=== PATIENT | male | born 1945 | race Caucasian/White ===

== ENCOUNTER 2016-09-23 13:23 | Day surgery (SDC) | payer MEDICARE ==
[2016-09-19 15:53] VITALS: BMI 22.8
--- NOTE | 2016-09-23 08:38 | P.GSHP ---
History of Present Illness H&P Date: 09/23/16 Chief Complaint: Reading or hernia Patient has been followed in the outpatient setting. He has complaints of a right groin hernia. He has a history of prior left inguinal hernia in 2000. That was performed through a traditional open approach. He feels an ache and a small bulge in the right groin. No nausea or vomiting. No change in bowel habits. Recent colonoscopy was performed. Past Medical History Past Medical History: Coronary Artery Disease (CAD), Hypertension Additional Past Medical History / Comment(s): HX OF DIARRHEA. History of Any Multi-Drug Resistant Organisms: None Reported Past Surgical History: Coronary Bypass/CABG, Hernia Repair Additional Past Surgical History / Comment(s): LEFT INGUINAL HERNIA, SKIN LESION ON FACE REMOVED. Colonoscopy. Past Anesthesia/Blood Transfusion Reactions: No Reported Reaction Past Psychological History: No Psychological Hx Reported Smoking Status: Never smoker Past Alcohol Use History: Daily Additional Past Alcohol Use History / Comment(s): 4 OZ OF WHISKEY DAILY. Past Drug Use History: None Reported - Past Family History Mother Family Medical History: No Reported History Medications and Allergies Home Medications Medication Instructions Recorded Confirmed Type Aspirin EC [Ecotrin] 325 mg PO DAILY 08/23/16 09/19/16 History Atenolol [Tenormin] 25 mg PO BID 08/23/16 09/19/16 History Atorvastatin [Lipitor] 80 mg PO HS 08/23/16 09/19/16 History L.acidoph,Paracasei, B.lactis 1 each PO Q2D 08/23/16 09/19/16 History [Probiotic] Lisinopril [Zestril] 5 mg PO DAILY 08/23/16 09/19/16 History Niacin 1,000 mg PO DAILY 08/23/16 09/19/16 History Niacinamide [Niacin] 500 mg PO DAILY 08/23/16 09/19/16 History Nitroglycerin Sl Tabs [Nitrostat] 0.4 mg SUBLINGUAL Q5M PRN 08/23/16 09/19/16 History Turmeric Root Extract [Turmeric] 500 mg PO DAILY 08/23/16 09/19/16 History Vit A,C & E/Lutein/Minerals 1 each PO DAILY 08/23/16 09/19/16 History [Ocuvite with Lutein Tablet] Allergies Allergy/AdvReac Type Severity Reaction Status Date / Time Penicillins Allergy Unknown Rash/Hives, Verified 09/19/16 16:09 Swollen lip Surgical - Exam Physical exam: General: Well-developed, well-nourished HEENT: Normocephalic, sclerae nonicteric Abdomen: [id number] right internal hernia, no palpable left and or hernia noted, prior scar noted, testes normal Extremities: No edema Neuro: Alert and oriented Assessment and Plan (1) Right inguinal hernia Narrative/Plan: Will proceed with operative repair at this time. The plan to perform this laparoscopically with robotic assistance was discussed. The risks of bleeding, infection, recurrence, conversion, numbness, chronic pain, bladder injury, and anesthesia-related complications were discussed. Additionally the need for a Díaz during this surgical procedure was discussed with the patient as well. He understands and wishes to proceed. Status: Acute
[~2016-09-23 13:23] MED LIST: CLINDAMYCIN 900 MG in DEXTROSE 5% IN WATER 50 ML IVPB ONE; DEXAMETHASONE SOD PHOSPHATE 10 MG/ML 1 ML VIAL IV ONE; GENTAMICIN 360 MG in SODIUM CHLORIDE 0.9% 100 ML IVPB ONE; HEPARIN SODIUM,PORCINE 5,000 UNIT/ML 1 ML VIAL SQ ONE; LACTATED RINGERS 1,000 ML IV ONE; ONDANSETRON 4 MG/2 ML VIAL IVP ONE
[2016-09-23] MEDS: LIDOCAINE 1% 20 ML VIAL (10MG/ML) FOR IV START INTRADERMA PRN ×2 (13:50→13:55)
[2016-09-23] MEDS ORDERED: SUCCINYLCHOLINE CHLORIDE 100 MG/5 ML SYR IV ONE (15:09)
[2016-09-23] MEDS ORDERED: ePHEDrine 50 MG/ML 1 ML AMP ONE (15:09)
[2016-09-23] MEDS ORDERED: GLYCOPYRROLATE 0.2 MG/ML 2 ML VIAL ONE (15:09)
[2016-09-23] MEDS ORDERED: LIDOCAINE 1% INJ 10MG/ML (20 ML MDV) ONE (15:09)
[2016-09-23] MEDS ORDERED: PROPOFOL 10 MG/ML 20 ML VIAL IV ONE (15:09)
[2016-09-23] MEDS ORDERED: MIDAZOLAM 2 MG/2 ML VIAL ONE (15:09)
[2016-09-23] MEDS ORDERED: ROCURONIUM BROMIDE 10 MG/ML 10 ML VIAL IV ONE (15:09)
[2016-09-23] MEDS ORDERED: NEOSTIGMINE 1 MG/ML 10 ML VIAL ONE (15:09)
[2016-09-23] MEDS ORDERED: fentaNYL (PF) 50 MCG/ML 2 ML AMP ONE (15:09)
[2016-09-23] MEDS ORDERED: BUPIVACAIN-EPI 0.25%-1:200,000 30 ML VIAL SQ ONE (15:36)
[2016-09-23] MEDS ORDERED: NALOXONE 0.4 MG/ML 1 ML VIAL IV PRN (17:38)
[2016-09-23] MEDS ORDERED: HYDROcodone/APAP 5-325MG 1 EACH TAB PO PRN (17:38)
[2016-09-23] MEDS: HYDROmorphone 1 MG/ML 1 ML SYRINGE IVP PRN ×4 (17:40→18:04)
[2016-09-23 17:47] VITALS: TEMP 96.8
--- NOTE | 2016-09-23 17:49 | P.OP ---
Date of Procedure: 09/23/16 Procedure(s) Performed: PREOPERATIVE DIAGNOSIS: Right inguinal hernia POSTOPERATIVE DIAGNOSIS: Right direct inguinal hernia PROCEDURE: Laparoscopic repair right inguinal hernia with da Celestina robot assistance SURGEON: Timothy EBL: Minimal ANESTHESIA: General COMPLICATIONS: None OPERATIVE PROCEDURE: Patient was placed on the operating table in the supine position. A Rivera catheter was placed. He was then placed in lithotomy. The abdomen was prepped and draped in usual sterile fashion. A small vertical supraumbilical incision was made. The fascia was retracted anteriorly with Irasema forceps. The Veress needle was inserted. The saline drop test was normal. Insufflation took place to 15 mmHg. A 5 mm trocar was then inserted. 2 additional 8 mm trochars were placed in the right upper quadrant and left upper quadrant under visualization. The initial 5 was switched to a 12 mm trocar at that time under direct visualization. The robotic arms were then brought in and docked into place. The fenestrated bipolar was used in the left arm and the laparoscopic jalyn were utilized in the right arm. A 30 12 mm scope was used in the up position. The peritoneal cavity was inspected. No left internal hernia was seen. An incision was then made on the peritoneum approximately 3-4 cm cephalad to the defect extending from the umbilical ligament laterally. Following that careful dissection of the preperitoneal space took place. This took place using electrocautery, sharp dissection and primarily blunt dissection. The patient's hernia was a direct hernia. The hernia sac was dissected away from the hole within Hesselbach's triangle. The pubic tubercle was identified. Raffy's ligament was dissected. Following that the dissection took place laterally. There was no evidence of an indirect hernia. The peritoneum was dissected all the way off of the spermatic cord structures. A small lipoma was identified and reduced. Once we had adequate space the 15 x 10 progrip mesh was advanced into the preperitoneal space and flattened out appropriately to cover all potential hernia sites. No sutures were used. The peritoneal defect was then closed using a 2-0 Vicryl stranstrattafix suture. The pneumoperitoneum was then evacuated. The fascia at the 12 mm site was closed using a [id number] 0 Vicryl stitch. At the completion of the procedure it was noted the patient had some subcutaneous emphysema. This was felt to be likely related to our 8 mm trocar where the CO2 gas was infusing tip pulled back slightly. I was able to decompress the subcutaneous emphysema out through the incision sites. The skin of all 3 sites was closed using a 4-0 Monocryl stitch. Steri-Strips and sterile dressings were applied. DISPOSITION: Stable to recovery room
[2016-09-23 18:46] VITALS: RESP 18
[2016-09-23] MEDS ORDERED: HYDROcodone/APAP 5-325MG 1 EACH TAB PO ONE (19:00)
[2016-09-23 19:14] VITALS: BP 134/83; PULSE 89
[2016-09-23] MEDS ORDERED: LACTATED RINGERS 1,000 ML IV ONE (19:45)
== END 2016-09-23 20:08 | disposition home or self-care (01) ==
LOC: OR 13:23
PROVIDERS: ATTEND Surgery
DX: K40.90 Unilateral inguinal hernia, without obstruction or gangrene, not specified as recurrent (principal); I25.10 Atherosclerotic heart disease of native coronary artery without angina pectoris; I10 Essential (primary) hypertension; E78.5 Hyperlipidemia, unspecified; Z95.1 Presence of aortocoronary bypass graft; Z79.82 Long term (current) use of aspirin; Z79.899 Other long term (current) drug therapy; Z88.0 Allergy status to penicillin
CPT/HCPCS: 49650; C1781; J2250; J1644; J1100; J2710; J2405; J2001; J3010; J1580; J1170; J0330; J2704

== ENCOUNTER 2022-01-14 12:02 | Inpatient (IN) | payer MEDICARE ==
[2022-01-14] MEDS ORDERED: SODIUM CHLORIDE 0.9% 1,000 ML IV STA (12:41)
--- NOTE | 2022-01-14 13:11 | ED ---
General Adult HPI - General Chief complaint: Dizziness Stated complaint: Syncopal episode Time Seen by Provider: 01/14/22 12:10 Source: patient, RN notes reviewed, old records reviewed Mode of arrival: EMS Limitations: no limitations - History of Present Illness Initial comments: This is a 76-year-old male presents emergency Department complaining of having multiple syncopal episodes. Patient states this started about 2 weeks ago when he was in [place] he was hospitalist for 4 days and had a loop recorder placed. Patient states he got a call today after he had an episode of syncope on Friday and Friday and the aircraft mechanic armament want to make an appointment to come see him in the next couple of days. Patient states he started feeling funny and lig htheaded and he decided come to the emergency department immediately. Patient denies any chest pain or palpitations. Patient denies shortness of breath or difficulty breathing. Patient states he normally passes out and only last about 15 seconds according to the . Patient states his atenolol was knocked down from twice a day to once a day and now down to 12.5 mg. patient denies any recent fever chills or cough. Patient denies any abdominal pain patient as nausea vomiting. Patient is asymptomatic currently - Related Data Home Medications Medication Instructions Recorded Confirmed Aspirin EC [Ecotrin] 325 mg PO DAILY 08/23/16 09/19/16 Atorvastatin [Lipitor] 80 mg PO HS 08/23/16 09/19/16 L.acidoph,Paracasei, B.lactis 1 each PO Q2D 08/23/16 09/19/16 [Probiotic] Niacin 1,000 mg PO DAILY 08/23/16 09/19/16 Niacinamide [Niacin] 500 mg PO DAILY 08/23/16 09/19/16 Nitroglycerin Sl Tabs [Nitrostat] 0.4 mg SUBLINGUAL Q5M PRN 08/23/16 09/19/16 Turmeric Root Extract [Turmeric] 500 mg PO DAILY 08/23/16 09/19/16 Vits A,C,E/Lutein/Minerals 1 each PO DAILY 08/23/16 09/19/16 [Ocuvite with Lutein Tablet] atenoloL [Tenormin] 25 mg PO BID 08/23/16 09/19/16 lisinopriL [Zestril] 5 mg PO DAILY 08/23/16 09/19/16 Previous Rx's Medication Instructions Recorded Hydrocodone/Acetaminophen [[place] 1 - 2 each PO Q4HR PRN #30 tab 09/23/16 5-325] Allergies Allergy/AdvReac Type Severity Reaction Status Date / Time Penicillins Allergy Unknown Rash/Hives, Verified 01/14/22 12:17 Swollen lip sulfamethoxazole Allergy Unknown Verified 01/14/22 12:17 [From Bactrim] trimethoprim [From Bactrim] Allergy Unknown Verified 01/14/22 12:17 Review of Systems ROS Statement: Those systems with pertinent positive or pertinent negative responses have been documented in the HPI. ROS Other: All systems not noted in ROS Statement are negative. Past Medical History Past Medical History: Coronary Artery Disease (CAD), Hypertension Additional Past Medical History / Comment(s): HX OF DIARRHEA. History of Any Multi-Drug Resistant Organisms: None Reported Past Surgical History: Coronary Bypass/CABG, Hernia Repair Additional Past Surgical History / Comment(s): LEFT INGUINAL HERNIA, SKIN LESION ON FACE REMOVED. Colonoscopy. loop recorder Past Anesthesia/Blood Transfusion Reactions: No Reported Reaction Past Psychological History: No Psychological Hx Reported Smoking Status: Never smoker Past Alcohol Use History: Daily Past Drug Use History: None Reported - Past Family History Mother Family Medical History: No Reported History General Exam - General Exam Comments Initial Comments: GENERAL: Patient is well-developed and well-nourished. Patient is nontoxic and well- hydrated and is in no acute distress. ENT: Neck is soft and supple. No significant lymphadenopathy is noted. Oropharynx is clear. Moist mucous membranes. Neck has full range of motion without eliciting any pain. EYES: The sclera were anicteric and conjunctiva were pink and moist. Extraocular movements were intact and pupils were equal round and reactive to light. Eyelids were unremarkable. PULMONARY: Unlabored respirations. Good breath sounds bilaterally. No audible rales rhonchi or wheezing was noted. CARDIOVASCULAR: There is a regular rate and rhythm without any murmurs gallops or rubs. ABDOMEN: Soft and nontender with normal bowel sounds. SKIN: Skin is clear with no lesions or rashes and otherwise unremarkable. NEUROLOGIC: Patient is alert and oriented x3. Cranial nerves II through XII are grossly int act. Motor and sensory are also intact. Normal speech, volume and content. Symmetrical smile. MUSCULOSKELETAL: Normal extremities with adequate strength and full range of motion. No lower extremity swelling or edema. No calf tenderness. LYMPHATICS: No significant lymphadenopathy is noted PSYCHIATRIC: Normal psychiatric evaluation. Limitations: no limitations Course Vital Signs 01/14/22 01/14/22 12:06 13:17 Temperature 98 F Pulse Rate 70 Pulse Rate [ 74 Sitting] Pulse Rate [ 75 Standing] Pulse Rate [ 67 Supine] Respiratory 16 16 Rate Blood Pressure 144/76 Blood Pressure 148/83 [Sitting] Blood Pressure 152/92 [Standing] Blood Pressure 146/76 [Supine] O2 Sat by Pulse 96 Oximetry Medical Decision Making - Medical Decision Making EKG shows sinus rhythm with a right bundle meme block at 70 bpm AK interval is 225 QRS is 153 QT interval is 472 QTC is 438. Patient's EKG shows no ST segment elevation or depression. Chest x-ray shows no acute abnormality. Spoke with cardiology. Dr. Camargo came to the emergency department and saw the patient and determined the patient needed a pacemaker. I spoke with Dr. Novoa agreed to admit the patient admitted the patient I wrote admitting orders. - Lab Data Result diagrams: 01/14/22 13:04 01/14/22 13:04 Lab Results 01/14/22 01/14/22 01/14/22 Range/Units 13:04 13:04 13:04 WBC 5.6 (3.8-10.6) k/uL RBC 4.78 (4.30-5.90) m/uL Hgb 14.8 (13.0-17.5) gm/dL Hct 44.5 (39.0-53.0) % MCV 93.0 (80.0-100.0) fL MCH 31.0 (25.0-35.0) pg MCHC 33.4 (31.0-37.0) g/dL RDW 13.1 (11.5-15.5) % Plt Count 204 (150-450) k/uL MPV 7.3 Neutrophils % 65 % Lymphocytes % 22 % Monocytes % 8 % Eosinophils % 0 % Basophils % 1 % Neutrophils # 3.6 (1.3-7.7) k/uL Lymphocytes # 1.3 (1.0-4.8) k/uL Monocytes # 0.4 (0-1.0) k/uL Eosinophils # 0.0 (0-0.7) k/uL Basophils # 0.0 (0-0.2) k/uL PT 10.7 (9.0-12.0) sec INR 1.0 (<1.2) APTT 23.2 (22.0-30.0) sec Sodium 141 (137-145) mmol/L Potassium 4.0 (3.5-5.1) mmol/L Chloride 108 H (98-107) mmol/L Carbon Dioxide 24 (22-30) mmol/L Anion Gap 9 mmol/L BUN 16 (9-20) mg/dL Creatinine 0.89 (0.66-1.25) mg/dL Est GFR (CKD-EPI)AfAm >90 (>60 ml/min/1.73 sqM) Est GFR (CKD-EPI)NonAf 83 (>60 ml/min/1.73 sqM) Glucose 80 (74-99) mg/dL Calcium 9.2 (8.4-10.2) mg/dL Magnesium 2.1 (1.6-2.3) mg/dL Total Bilirubin 0.9 (0.2-1.3) mg/dL AST 30 (17-59) U/L ALT 31 (4-49) U/L Alkaline Phosphatase 80 (38-126) U/L Troponin I (0.000-0.034) ng/mL Total Protein 6.7 (6.3-8.2) g/dL Albumin 4.1 (3.5-5.0) g/dL 01/14/22 Range/Units 13:04 WBC (3.8-10.6) k/uL RBC (4.30-5.90) m/uL Hgb (13.0-17.5) gm/dL Hct (39.0-53.0) % MCV (80.0-100.0) fL MCH (25.0-35.0) pg MCHC (31.0-37.0) g/dL RDW (11.5-15.5) % Plt Count (150-450) k/uL MPV Neutrophils % % Lymphocytes % % Monocytes % % Eosinophils % % Basophils % % Neutrophils # (1.3-7.7) k/uL Lymphocytes # (1.0-4.8) k/uL Monocytes # (0-1.0) k/uL Eosinophils # (0-0.7) k/uL Basophils # (0-0.2) k/uL PT (9.0-12.0) sec INR (<1.2) APTT (22.0-30.0) sec Sodium (137-145) mmol/L Potassium (3.5-5.1) mmol/L Chloride (98-107) mmol/L Carbon Dioxide (22-30) mmol/L Anion Gap mmol/L BUN (9-20) mg/dL Creatinine (0.66-1.25) mg/dL Est GFR (CKD-EPI)AfAm (>60 ml/min/1.73 sqM) Est GFR (CKD-EPI)NonAf (>60 ml/min/1.73 sqM) Glucose (74-99) mg/dL Calcium (8.4-10.2) mg/dL Magnesium (1.6-2.3) mg/dL Total Bilirubin (0.2-1.3) mg/dL AST (17-59) U/L ALT (4-49) U/L Alkaline Phosphatase (38-126) U/L Troponin I <0.012 (0.000-0.034) ng/mL Total Protein (6.3-8.2) g/dL Albumin (3.5-5.0) g/dL Disposition Clinical Impression: Syncope and collapse, Bradycardia Disposition: ADMITTED IP TO THIS [facility] Referrals: Daniel Larose MD [Primary Care Provider] - 1-2 days
--- NOTE | 2022-01-14 13:15 | XR ---
EXAMINATION TYPE: XR chest 2V DATE OF EXAM: 01/14/2022 COMPARISON: NONE TECHNIQUE: PA and lateral views submitted. HISTORY: Chest Pain FINDINGS: The lungs are clear and there is no pneumothorax, pleural effusion, or focal pneumonia. Postoperati ve change with no overt failure. Arthropathy of the shoulders. Hypertrophic and degenerative change o f the spine. Suggestion of an epicardial lead. IMPRESSION: 1. No acute process.
[2022-01-14 13:26] LABS: ALT 31 U/L (4-49); AST 30 U/L (17-59); African American GFR (CKD) >90 (>60 ml/min/1.73 sqM); Albumin 4.1 g/dL (3.5-5.0); Alkaline Phosphatase 80 U/L (38-126); Anion Gap 9 mmol/L; Blood Urea Nitrogen 16 mg/dL (9-20); Calcium 9.2 mg/dL (8.4-10.2); Carbon Dioxide 24 mmol/L (22-30); Chloride 108 mmol/L (98-107); Glucose 80 mg/dL (74-99); Magnesium 2.1 mg/dL (1.6-2.3); Non-African American GFR(CKD) 83 (>60 ml/min/1.73 sqM); Sodium 141 mmol/L (137-145); Total Bilirubin 0.9 mg/dL (0.2-1.3); Total Protein 6.7 g/dL (6.3-8.2)
[2022-01-14 13:34] LABS: Prothrombin Time 10.7 sec (9.0-12.0)
[2022-01-14 13:35] LABS: Partial Thromboplastin Time 23.2 sec (22.0-30.0)
[2022-01-14 13:43] LABS: Basophils % (A) 1 %; Eosinophils % (A) 0 %; HCT 44.5 % (39.0-53.0); HGB 14.8 gm/dL (13.0-17.5); Lymphocytes # (A) 1.3 k/uL (1.0-4.8); Lymphocytes % (A) 22 %; MCHC 33.4 g/dL (31.0-37.0); Mean Platelet Volume 7.3; Monocytes # (A) 0.4 k/uL (0-1.0); Monocytes % (A) 8 %; Neutrophils # (A) 3.6 k/uL (1.3-7.7); Neutrophils % (A) 65 %; Platelet Count 204 k/uL (150-450); RBC 4.78 m/uL (4.30-5.90); RDW 13.1 % (11.5-15.5); WBC 5.6 k/uL (3.8-10.6)
[2022-01-14] MEDS ORDERED: SODIUM CHLORIDE 0.9% 1,000 ML IV ONE (14:32)
[2022-01-14 14:35] LABS: Glucose,Whole Blood 72 mg/dL (75-99)
--- NOTE | 2022-01-14 14:37 | P.CRDCN ---
History of Present Illness Consult date: 01/14/22 History of present illness: History of Present Illness: The patient is a 76 old male with a known history of coronary disease, hypertension, hyperlipidemia who presented with a syncopal episode. He had a syncopal episode of unknown etiology while in [place], received an implantable loop recorder and since that time had no syncope and recently underwent an MPI that showed no evidence of stress-induced ischemia and his systolic function. He underwent CABG in 2006. He is quite active physically without any symptoms or limitations. Friday night he had a syncopal episode of 15 seconds or so and he had another episode Friday. His symptoms were not associated with tonic-clonic activity, loss of bladder control or palpitations. He had no chest discomfort or significant dyspnea. He is loop recorder showed sinus pauses of 15 and 18 seconds. Patient activity has been stable until recently. He has no prior history of CHF or recurrent angina pectoris. He has a history of hypertension and hyperlipidemia but he is a nondiabetic nonsmoker. He has no history of carotid disease, he had a carotid duplex scan done in November of this year that showed mild obstructive disease. His medication at home include aspirin once a day, atenolol 12-1/2 mg daily, atorvastatin 80 mg daily, lisinopril 5 mg daily, niacin 500 mg twice a day. Review of Systems: Respiratory: No history of asthma, bronchitis or recent cough. GI: She had nausea and vomiting today. No history of peptic ulcer disease. No recent GI bleed. : No hematuria or dysuria. Nervous System: No stroke or seizure. Physical Examination: 76-year-old male alert and oriented no apparent distress, blood pressure 146/70 with a heart rate in the 70s Head: Normocephalic. Eyes: Sclerae nonicteric. Neck: Good carotid upstroke, no bruit, no jugular venous distention. Lungs: Clear to auscultation. Heart: Regular rate and rhythm, S1-S2, no S3, no rub. Systolic ejection murmur. Abdomen: Soft nontender, positive bowel sounds no organomegaly. Extremities: No edema, intact distal pulses. Labs: Troponin less than 0.012, potassium 4.0, BUN 16, creatinine 0.89, hemoglobin of 14. His EKG shows sinus mechanism with incomplete right bundle branch block. His chest x-ray shows no acute changes. Impression: 1. Syncope with sinus arrest 2. Status post CABG, stable 3. History of hypertension 4. History of hyperlipidemia Plan: 1. Proceed with permanent pacemaker implantation, I discussed with him the rationale and the plan 2. Hold beta jared for now 3. Continue other medications 4. No need to repeat the echo ordered a carotid duplex scan 5. Depending on his progress further recommendations will be made. He will be scheduled to undergo the procedure tomorrow by Dr. Chambers. Thank you for this consult we will follow with you. Past Medical History Past Medical History: Coronary Artery Disease (CAD), Hypertension Additional Past Medical History / Comment(s): HX OF DIARRHEA. History of Any Multi-Drug Resistant Organisms: None Reported Past Surgical History: Coronary Bypass/CABG, Hernia Repair Additional Past Surgical History / Comment(s): LEFT INGUINAL HERNIA, SKIN LESION ON FACE REMOVED. Colonoscopy. loop recorder Past Anesthesia/Blood Transfusion Reactions: No Reported Reaction Past Psychological History: No Psychological Hx Reported Smoking Status: Never smoker Past Alcohol Use History: Daily Past Drug Use History: None Reported - Past Family History Mother Family Medical History: No Reported History Medications and Allergies Home Medications Medication Instructions Recorded Confirmed Type Aspirin EC [Ecotrin] 325 mg PO DAILY 08/23/16 09/19/16 History Atorvastatin [Lipitor] 80 mg PO HS 08/23/16 09/19/16 History L.acidoph,Paracasei, B.lactis 1 each PO Q2D 08/23/16 09/19/16 History [Probiotic] Niacin 1,000 mg PO DAILY 08/23/16 09/19/16 History Niacinamide [Niacin] 500 mg PO DAILY 08/23/16 09/19/16 History Nitroglycerin Sl Tabs [Nitrostat] 0.4 mg SUBLINGUAL Q5M PRN 08/23/16 09/19/16 History Turmeric Root Extract [Turmeric] 500 mg PO DAILY 08/23/16 09/19/16 History Vits A,C,E/Lutein/Minerals 1 each PO DAILY 08/23/16 09/19/16 History [Ocuvite with Lutein Tablet] atenoloL [Tenormin] 25 mg PO BID 08/23/16 09/19/16 History lisinopriL [Zestril] 5 mg PO DAILY 08/23/16 09/19/16 History Hydrocodone/Acetaminophen [[place] 1 - 2 each PO Q4HR PRN #30 tab 09/23/16 Rx 5-325] Allergies Allergy/AdvReac Type Severity Reaction Status Date / Time Penicillins Allergy Unknown Rash/Hives, Verified 01/14/22 12:17 Swollen lip sulfamethoxazole Allergy Unknown Verified 01/14/22 12:17 [From Bactrim] trimethoprim [From Bactrim] Allergy Unknown Verified 01/14/22 12:17 Physical Exam Vitals: Vital Signs Temp Pulse Pulse Pulse Pulse Resp BP 01/14/22 13:17 74 75 67 16 01/14/22 12:06 98 F 70 16 144/76 BP BP BP Pulse Ox 01/14/22 13:17 148/83 152/92 146/76 01/14/22 12:06 96 Intake and Output 01/13/22 01/14/22 01/14/22 22:59 06:59 14:59 Other: Weight 69.853 kg Results 01/14/22 13:04 01/14/22 13:04 Cardiac Enzymes 01/14/22 01/14/22 Range/Units 13:04 13:04 AST 30 (17-59) U/L Troponin I <0.012 (0.000-0.034) ng/mL Coagulation 01/14/22 Range/Units 13:04 PT 10.7 (9.0-12.0) sec APTT 23.2 (22.0-30.0) sec CBC 01/14/22 Range/Units 13:04 WBC 5.6 (3.8-10.6) k/uL RBC 4.78 (4.30-5.90) m/uL Hgb 14.8 (13.0-17.5) gm/dL Hct 44.5 (39.0-53.0) % Plt Count 204 (150-450) k/uL Comprehensive Metabolic Panel 01/14/22 Range/Units 13:04 Sodium 141 (137-145) mmol/L Potassium 4.0 (3.5-5.1) mmol/L Chloride 108 H (98-107) mmol/L Carbon Dioxide 24 (22-30) mmol/L BUN 16 (9-20) mg/dL Creatinine 0.89 (0.66-1.25) mg/dL Glucose 80 (74-99) mg/dL Calcium 9.2 (8.4-10.2) mg/dL AST 30 (17-59) U/L ALT 31 (4-49) U/L Alkaline Phosphatase 80 (38-126) U/L Total Protein 6.7 (6.3-8.2) g/dL Albumin 4.1 (3.5-5.0) g/dL Current Medications Generic Name Dose Route Start Last Admin Trade Name Freq PRN Reason Stop Dose Admin Sodium Chloride 1,000 mls @ 50 mls/hr 01/14/22 14:30 Saline 0.9% IV .Q20H EVAN Sodium Chloride 1,000 mls @ 50 mls/hr 01/14/22 14:30 Saline 0.9% IV .Q20H EVAN Clindamycin Phosphate 900 mg/ 56 mls @ 50 mls/hr 01/15/22 07:00 Dextrose/Water IVPB 01/15/22 23:00 ONCE PRN Pre-Op Clindamycin Phosphate 600 mg/ 254 mls @ 250 mls/hr 01/15/22 07:00 Sodium Chloride IRRIGATION 01/15/22 23:00 ONCE PRN Pre-Op Intake and Output 01/13/22 01/14/22 01/14/22 22:59 06:59 14:59 Other: Weight 69.853 kg Patient Weight 01/15/22 06:59 Weight 69.853 kg 01/14/22 13:04 01/14/22 13:04
[2022-01-14] MEDS: SODIUM CHLORIDE 0.9% 1,000 ML IV SCH ×2 (15:05)
--- NOTE | 2022-01-14 21:34 | P.HPIM ---
History of Present Illness H&P Date: 01/14/22 Chief Complaint: Syncope This is a pleasant 76-year-old patient who follows with Dr. Larose. Chronic stable medical conditions include coronary artery disease with bypass about 15 years ago, hypertension, hyperlipidemia. Follows with rod bending machine operator Dr. Camargo. Patient was recently in [place]. Started having recurrent syncopal episodes. Would pass out without doing. Lasting for short period of time. Loop recorder was placed in [place]. He had further episodes decided to send day. He was called to come in to the hospital as he was found to have a sinus pauses lasting anywhere from 15-18 seconds. Patient scheduled follow-up pacemaker tomorrow. Currently reclining in bed comfortable. Patient did not have any symptoms coming on before passing out. Review of systems: GEN.: Tired EYES: None HEENT: None NECK: None RESPIRATORY: None CARDIOVASCULAR: [As above GASTROINTESTINAL: None GENITOURINARY: None MUSCULOSKELETAL: None LYMPHATICS: None HEMATOLOGICAL: None PSYCHIATRY: None NEUROLOGICAL: None Past medical history to include: Coronary artery disease with bypass, hypertension, hyperlipidemia Social history: . Does not smoke. Sitting pressure for the Tylenol field. Drinks about 4 ounces of whiskey in the evening. Family history: Reviewed, noncontributory to presentation Physical examination: VITAL SIGNS: 98, 70, 16, 144/76, 96% room air GENERAL: BMI 22.1, reclining but awake, comfortable. EYES: Pupils equal. Conjunctiva normal. HEENT: External appearance of nose and ears normal, oral cavity grossly normal. NECK: JVD not raised; masses not palpable. HEART: First and second heart sounds are normal; no edema. LUNGS: Respiratory rate normal; clear to auscultation. ABDOMEN: Soft, nontender, liver spleen not palpable, no masses palpable. PSYCH: Alert and oriented x3; mood and affect normal. MUSCULOSKELETAL:No Clubbing/cyanosis;muscles-grossly intact NEUROLOGICAL: Cranial nerves grossly intact; no facial asymmetry, power and sensation grossly intact. LYMPHATICS: No lymph nodes palpable in the axilla and neck INVESTIGATIONS, reviewed in the clinical context: White count 5.6 hemoglobin 14.8 platelets 204 sodium 141 potassium 4 being 16 creatinine 0.89 Troponin I less than 0.012 EKG tracing personally reviewed by me-sinus rhythm. First-degree AV block. Intraventricular conduction delay. Assessment and plan: -Sinus pauses lasting from 16-18 seconds on the Loop recorder causing patient to have recurrent syncope. Follow-up appointment pacemaker tomorrow. Tenormin held -CAD with a prior history of bypass about 15 years ago. Aspirin. Hyperlipidemia Lipitor 80 mg daily at bedtime. Niacin 500 mg twice a day. Niacin thousand milligram a day -Essential hypertension Zestril 5 mg a day. Hold beta jared Resume home medications. Hold beta jared. Telemetry. Nothing by mouth after midnight. 4 pacemaker tomorrow. Care was discussed with the patient. Questions answered. Given the complexity and severity of patient's condition expect the patient to be in the hospital at least for 2 overnights Past Medical History Past Medical History: Coronary Artery Disease (CAD), Hypertension Additional Past Medical History / Comment(s): HX OF DIARRHEA. History of Any Multi-Drug Resistant Organisms: None Reported Past Surgical History: Coronary Bypass/CABG, Hernia Repair Additional Past Surgical History / Comment(s): LEFT INGUINAL HERNIA, SKIN LESION ON FACE REMOVED. Colonoscopy. loop recorder Past Anesthesia/Blood Transfusion Reactions: No Reported Reaction Past Psychological History: No Psychological Hx Reported Smoking Status: Never smoker Past Alcohol Use History: Daily Past Drug Use History: None Reported - Past Family History Mother Family Medical History: No Reported History Medications and Allergies Home Medications Medication Instructions Recorded Confirmed Type Atorvastatin [Lipitor] 80 mg PO HS 08/23/16 01/14/22 History Niacinamide [Niacin] 500 mg PO BID 08/23/16 01/14/22 History Turmeric Root Extract [Turmeric] 500 mg PO DAILY 08/23/16 01/14/22 History atenoloL [Tenormin] 12.5 mg PO DAILY 08/23/16 01/14/22 History lisinopriL [Zestril] 5 mg PO DAILY 08/23/16 01/14/22 History Aspirin EC [Ecotrin Low Dose] 81 mg PO DAILY 01/14/22 01/14/22 History Cholecalciferol (Vitamin D3) 125 mcg PO DAILY 01/14/22 01/14/22 History [Vitamin D3 (125 MCG = 5,000 IU)] Multivitamins, Thera [Multivitamin 1 tab PO DAILY 01/14/22 01/14/22 History (formulary)] Niacin 1,000 mg PO DAILY 01/14/22 01/14/22 History Allergies Allergy/AdvReac Type Severity Reaction Status Date / Time Penicillins Allergy Unknown Rash/Hives Verified 01/14/22 15:02 on entire body, Swollen lip sulfamethoxazole AdvReac "Thought Verified 01/14/22 15:02 [From Bactrim] he was having a seizure" trimethoprim [From Bactrim] AdvReac "Thought Verified 01/14/22 15:02 he was having a seizure" Physical Exam Vitals: Vital Signs Temp Pulse Pulse Pulse Pulse Resp BP 01/14/22 20:00 97.8 F 79 18 01/14/22 17:45 98 F 70 16 138/74 01/14/22 15:32 79 16 136/74 01/14/22 13:17 74 75 67 16 01/14/22 12:06 98 F 70 16 144/76 BP BP BP Pulse Ox 01/14/22 20:00 144/81 97 01/14/22 17:45 95 01/14/22 15:32 96 01/14/22 13:17 148/83 152/92 146/76 01/14/22 12:06 96 Intake and Output 01/14/22 01/14/22 01/14/22 06:59 14:59 22:59 Other: Weight 69.853 kg Results CBC & Chem 7: 01/14/22 13:04 01/14/22 13:04 Labs: Abnormal Lab Results - Last 24 Hours (Table) 01/14/22 01/14/22 Range/Units 13:04 14:34 Chloride 108 H (98-107) mmol/L POC Glucose (mg/dL) 72 L (75-99) mg/dL
[2022-01-14] MEDS: ATORVASTATIN 80 MG TAB PO SCH (22:10)
[2022-01-15] MEDS: ASPIRIN 81 MG PO SCH (06:03)
[2022-01-15] MEDS: lisinopriL 5 MG TAB PO SCH (06:03)
[2022-01-15] MEDS: MULTIVITAMINS, THERA 1 EACH TAB PO SCH (06:03)
[2022-01-15] MEDS: SODIUM CHLORIDE 0.9% 1,000 ML IV SCH ×2 (06:03→06:04)
[2022-01-15] MEDS: CHOLECALCIFEROL 125 MCG (5000 IU) TABLET PO SCH (06:03)
[2022-01-15] MEDS ORDERED: CLINDAMYCIN 900 MG in DEXTROSE 5% IN WATER 50 ML IVPB PRN ×2 (07:00)
[2022-01-15] MEDS ORDERED: CLINDAMYCIN 600 MG in SODIUM CHLORIDE 0.9% 250 ML IRRIGATION PRN (07:00)
[2022-01-15 07:20] LABS: Glucose,Whole Blood 102 mg/dL (75-99)
[2022-01-15 08:11] LABS: Basophils % (A) 1 %; Eosinophils # (A) 0.1 k/uL (0-0.7); Eosinophils % (A) 1 %; HCT 42.5 % (39.0-53.0); HGB 14.4 gm/dL (13.0-17.5); Lymphocytes # (A) 1.3 k/uL (1.0-4.8); Lymphocytes % (A) 25 %; MCH 32.1 pg (25.0-35.0); MCV 94.5 fL (80.0-100.0); Mean Platelet Volume 7.3; Monocytes # (A) 0.4 k/uL (0-1.0); Monocytes % (A) 8 %; Neutrophils # (A) 3.3 k/uL (1.3-7.7); Neutrophils % (A) 63 %; Platelet Count 192 k/uL (150-450); RBC 4.49 m/uL (4.30-5.90); RDW 13.1 % (11.5-15.5); WBC 5.3 k/uL (3.8-10.6)
[2022-01-15 08:14] LABS: African American GFR (CKD) >90 (>60 ml/min/1.73 sqM); Anion Gap 6 mmol/L; Blood Urea Nitrogen 12 mg/dL (9-20); Calcium 8.6 mg/dL (8.4-10.2); Carbon Dioxide 26 mmol/L (22-30); Chloride 109 mmol/L (98-107); Glucose 97 mg/dL (74-99); Non-African American GFR(CKD) 89 (>60 ml/min/1.73 sqM); Sodium 141 mmol/L (137-145)
--- NOTE | 2022-01-15 08:31 | P.PN ---
Subjective Progress Note Date: 01/15/22 PROGRESS NOTE The patient is a 76-year-old male with a known history of CAD, post CABG who had recent syncopal episodes, had an implantable loop recorder and had 2 episodes of syncope on the weekend with long sinus arrest. He is doing well this morning, denies any chest discomfort or dyspnea. He is scheduled to undergo permanent pacemaker implantation today. He is in sinus mechanism with no significant pauses on the monitor. He has a prior preserved systolic function and no evidence of ischemia on the recent stress test. He continues to be on aspirin, Lipitor 80 mg daily, Zestril 5 mg daily PHYSICAL EXAMINATION: Blood pressure 146/78 heart rate 70 LUNGS: Clear to auscultation HEART: Regular rate and rhythm, S1, S2. No S3. systolic ejection murmur at the base ABDOMEN: Soft, nontender, no organomegaly EXTREMETIES: No edema LAB: Potassium 4.0, BUN 12, creatinine 0.75, hemoglobin 14.4 IMPRESSION: 1. Syncope with sinus arrest 2. Status post CABG 3. History of hypertension 4. History of hyperlipidemia PLAN: 1. Proceed with permanent pacemaker implantation today 2. Reinitiate beta jared post procedure 3. If stable probable discharge home tomorrow. Objective - Vital Signs Vital signs: Vital Signs Temp 98.1 F 01/15/22 04:57 Pulse 74 01/15/22 04:57 Resp 16 01/15/22 04:57 BP 146/78 01/15/22 04:57 Pulse Ox 97 01/15/22 04:57 Intake & Output 01/14/22 01/15/22 01/15/22 18:59 06:59 18:59 Weight 69.853 kg 71 kg Other: # Voids 1 - Labs CBC & Chem 7: 01/15/22 07:25 01/15/22 07:25 Labs: Abnormal Lab Results - Last 24 Hours (Table) 01/14/22 01/14/22 01/15/22 Range/Units 13:04 14:34 07:19 Chloride 108 H (98-107) mmol/L POC Glucose (mg/dL) 72 L 102 H (75-99) mg/dL 01/15/22 Range/Units 07:25 Chloride 109 H (98-107) mmol/L POC Glucose (mg/dL) (75-99) mg/dL
[2022-01-15] MEDS: ACETAMINOPHEN TAB 500 MG TAB PO PRN ×2 (14:55→22:56)
[2022-01-15] MEDS ORDERED: IV FLUID CONTINUATION 1,000 ML IV ONE (16:10)
[2022-01-15] MEDS ORDERED: IOPAMIDOL-370 50ML BTL INJ ONE (16:24)
--- NOTE | 2022-01-15 16:25 | P.PN ---
Progress Note - Text Progress Note Date: 01/15/22 Chief Complaint: Syncope This is a pleasant 76-year-old patient who follows with Dr. Larose. Chronic stable medical conditions include coronary artery disease with bypass about 15 years ago, hypertension, hyperlipidemia. Follows with professional driver Dr. Camargo. Patient was recently in [place]. Started having recurrent syncopal episodes. Would pass out without doing. Lasting for short period of time. Loop recorder was placed in [place]. He had further episodes decided to send day. He was called to come in to the hospital as he was found to have a sinus pauses lasting anywhere from 15-18 seconds. Patient scheduled follow-up pacemaker tomorrow. Currently reclining in bed comfortable. Patient did not have any symptoms coming on before passing out. January 15: Patient's visiting. Pending pacemaker placement later today. Currently no symptoms. Telemetry. Nothing by mouth. Active Medications Acetaminophen (Acetaminophen Tab 500 Mg Tab) 500 mg PO Q6HR PRN PRN Reason: Fever and/ or Pain Last Admin: 01/15/22 14:55 Dose: 500 mg Documented by: Aspirin (Aspirin 81 Mg) 81 mg PO DAILY [facility] Last Admin: 01/15/22 06:03 Dose: 81 mg Documented by: Atorvastatin Calcium (Atorvastatin 80 Mg Tab) 80 mg PO HS [facility] Last Admin: 01/14/22 22:10 Dose: 80 mg Documented by: Cholecalciferol (Cholecalciferol 125 Mcg (5000 Iu) Tablet) 125 mcg PO DAILY [facility] Last Admin: 01/15/22 06:03 Dose: 125 mcg Documented by: Sodium Chloride (Saline 0.9%) 1,000 mls @ 50 mls/hr IV .Q20H [facility] Last Admin: 01/15/22 06:03 Dose: 50 mls/hr Documented by: Sodium Chloride (Saline 0.9%) 1,000 mls @ 50 mls/hr IV .Q20H [facility] Last Admin: 01/15/22 06:04 Dose: Not Given Documented by: Clindamycin Phosphate 900 mg/ (Dextrose/Water) 56 mls @ 50 mls/hr IVPB ONCE PRN PRN Reason: Pre-Op Stop: 01/15/22 23:00 Clindamycin Phosphate 600 mg/ (Sodium Chloride) 254 mls @ 250 mls/hr IRRIGATION ONCE PRN PRN Reason: Pre-Op Stop: 01/15/22 23:00 Lisinopril (Lisinopril 5 Mg Tab) 5 mg PO DAILY [facility] Last Admin: 01/15/22 06:03 Dose: 5 mg Documented by: Multivitamins (Multivitamins, Thera 1 Each Tab) 1 each PO DAILY [facility] Last Admin: 01/15/22 06:03 Dose: 1 each Documented by: Past medical history to include: Coronary artery disease with bypass, hypertension, hyperlipidemia Social history: . Does not smoke. Sitting pressure for the Tylenol field. Drinks about 4 ounces of whiskey in the evening. Family history: Reviewed, noncontributory to presentation Physical examination: VITAL SIGNS: 98.4, 67, 17, 142/84, 99% room air GENERAL: Reclining in bed, comfortable EYES: Pupils equal. Conjunctiva normal. HEENT: External appearance of nose and ears normal, oral cavity grossly normal. NECK: JVD not raised; masses not palpable. HEART: First and second heart sounds are normal; no edema. LUNGS: Respiratory rate normal; clear to auscultation. ABDOMEN: Soft, nontender, liver spleen not palpable, no masses palpable. PSYCH: Alert and oriented x3; mood and affect normal. MUSCULOSKELETAL:No Clubbing/cyanosis;muscles-grossly intact INVESTIGATIONS, reviewed in the clinical context: January 15: White count 5.3 hemoglobin 14.4 potassium 4 creatinine 0.75 White count 5.6 hemoglobin 14.8 platelets 204 sodium 141 potassium 4 being 16 creatinine 0.89 Troponin I less than 0.012 EKG tracing personally reviewed by me-sinus rhythm. First-degree AV block. Intraventricular conduction delay. Assessment and plan: -Sinus pauses lasting from 16-18 seconds on the Loop recorder causing patient to have recurrent syncope.: Uncontrolled Pending pacemaker placement today. Tenormin held -CAD with a prior history of bypass about 15 years ago. Aspirin. Hyperlipidemia Lipitor 80 mg daily at bedtime. Niacin 500 mg twice a day. Niacin thousand milligram a day -Essential hypertension Zestril 5 mg a day. Hold beta jared Continue current medications. Nothing by mouth. Pending pacemaker placement today.
[2022-01-15] MEDS ORDERED: LIDOCAINE 1% INJ 10MG/ML (30 ML VIAL-PF) SQ ONE (17:00)
[2022-01-15] MEDS ORDERED: fentaNYL (PF) 50 MCG/ML 2 ML AMP IV ONE ×2 (17:06)
[2022-01-15] MEDS ORDERED: fentaNYL (PF) 50 MCG/ML 2 ML AMP ONE (17:06)
[2022-01-15] MEDS ORDERED: MIDAZOLAM 2 MG/2 ML VIAL IV ONE (18:02)
--- NOTE | 2022-01-15 18:44 | P.EPPROC ---
- EP Procedure Note Electrophysiology Procedure Note: Diagnosis Syncope, documented long pauses on loop monitor Right bundle branch block Mildly prolonged CO interval Procedure Dual-chamber pacemaker implantation Details Patient was brought to the EP lab in a fasting state. Written informed consent was obtained prior to the procedure. Conscious sedation provided by anesthesia team IV antibiotics administered. Local anesthesia administered. A 4 cm incision made in the pectoral area. Subfascial pocket made. Venous access obtained Venous sheaths placed. Leads placed in the right heart Atrial lead position the right atrial appendage. [employer] medical affairs screwed in the right atrial appendage Pacing threshold 1 warted 0.4 ms, P waves 1.7 mV and pacing impedance 480 ohms RV lead position in the RV septum Pacing threshold 0.5 V at 0.4 ms R waves greater than 12 mV pacing impedance 650 ohms Dual chamber pacemaker device connected to the leads and placed in the subfascial pocket [facility] medical, ASSURITY MRI Patient tolerated the procedure well without acute complications DD 560-1:30 with a VIP mode turned on to minimize RV pacing
--- NOTE | 2022-01-15 18:45 | P.PRLE ---
RE: Alex Barajas Dear Dr. Thuan Johnson was admitted with episodes of syncope and documented long pauses on the loop monitor He underwent permanent pacing successfully He will continue to follow with you and Dr. Camargo as before Thank you for entrusting me with the care of the patient Warm regards Sincerely Phillip Chambers
--- NOTE | 2022-01-15 18:46 | P.PCN ---
Preoperative Diagnosis: Left upper extremity venogram 10 mL every dye injected in the left arm Patent left subclavian and axillary venous system Plan proceed with permanent pacing for syncope and documented long pauses on the loop monitor
--- NOTE | 2022-01-15 19:06 | P.PCN ---
Preoperative Diagnosis: Patient underwent EP procedure under conscious sedation/moderate sedation, monitoring of the level of consciousness and physiologic parameters including but not limited to vital signs and oxygenation. Patient tolerated the procedure well without any acute complications. Start time: 455 Stop time:1905
[2022-01-15] MEDS: ATORVASTATIN 80 MG TAB PO SCH (20:09)
[2022-01-15] MEDS ORDERED: CLINDAMYCIN 900 MG in DEXTROSE 5% IN WATER 50 ML IVPB ONE ×2 (21:00)
[2022-01-15] MEDS ORDERED: METOPROLOL TARTRATE 12.5 MG TAB PO STA (22:09)
[2022-01-16] MEDS ORDERED: CLINDAMYCIN 900 MG in DEXTROSE 5% IN WATER 50 ML IVPB ONE ×2 (03:00)
[2022-01-16] MEDS: SODIUM CHLORIDE 0.9% 1,000 ML IV SCH ×2 (06:12→06:22)
[2022-01-16] MEDS: ASPIRIN 81 MG PO SCH (08:53)
[2022-01-16] MEDS: CHOLECALCIFEROL 125 MCG (5000 IU) TABLET PO SCH (08:53)
[2022-01-16] MEDS: lisinopriL 5 MG TAB PO SCH (08:53)
[2022-01-16] MEDS: MULTIVITAMINS, THERA 1 EACH TAB PO SCH (08:54)
[2022-01-16 08:57] VITALS: TEMP 97.2
--- NOTE | 2022-01-16 10:26 | XR ---
EXAMINATION TYPE: XR chest 1V portable DATE OF EXAM: 01/16/2022 COMPARISON: NONE HISTORY: 01/14/2022 TECHNIQUE: Single frontal view of the chest is obtained. FINDINGS: There is no focal air space opacity, pleural effusion, or pneumothorax seen. The cardiac silhouette size is within normal limits. The osseous structures are intact. A left-sided pacemaker is seen with the proximal lead overlying the right atrium and distal lead overlying the right ventric le. Postsurgical changes. Atherosclerotic change aorta. Heart size normal. No overt failure. IMPRESSION: Pacemaker placement with no sizable pneumothorax.
--- NOTE | 2022-01-16 11:37 | P.PN ---
Subjective The patient is a 76 old male with a known history of coronary artery disease s/p CABG in 2006, hypertension, hyperlipidemia who presented with a syncopal episode. He had a syncopal episode of unknown etiology while in [place], received an implantable loop recorder and since that time had no syncope and recently underwent an MPI that showed no evidence of stress-induced ischemia and his systolic function. He is quite active physically without any symptoms or limitations. Friday night he had a syncopal episode of 15 seconds or so and he had another episode Friday morning. His symptoms were not associated with tonic-clonic activity, loss of bladder control or palpitations. He had no chest discomfort or significant dyspnea. He is loop recorder showed sinus pauses of 15 and 18 seconds. Pacemaker was recommended. On 01/15/2022 patient underwent dual-chamber pacemaker implantation with Dr. Chambers. 01/16/2022 Patient seen and examined at bedside, no acute distress. He denies any chest pain, shortness of breath, lightheadedness or dizziness. His pacemaker was interrogated with no acute events, pacemaker is functioning normally. Patient's vital signs are stable. He did have an episode of tachycardia, sinus HR 90s-110 overnight was given one dose of metoprolol tartrate 12.5 mg. He is currently in sinus mechanism with heart rate in the 80s. He is currently maintained on aspirin 80 mg daily, atorvastatin 80 mg nightly, lisinopril 5 mg daily ASSESSMENT Syncope with sinus arrest Dual-chamber pacemaker implantation on 01/15/2022 Coronary artery disease Status post CABG, stable History of hypertension History of hyperlipidemia PLAN From cardiology perspective, patient stable to be discharged home. Restart patient's home atenolol 12.5 mg daily. Continue all current cardiac medications. Follow up outpatient with Dr. Camargo. Nurse practitioner note has been reviewed by physician. Signing provider agrees with the documented findings, assessment, and plan of care. Objective - Vital Signs Vital signs: Vital Signs Temp 97.2 F L 01/16/22 08:00 Pulse 83 01/16/22 08:00 Resp 16 01/16/22 08:00 BP 114/68 01/16/22 08:00 Pulse Ox 96 01/16/22 08:00 Intake & Output 01/15/22 01/16/22 01/16/22 18:59 06:59 18:59 Intake Total 106 568 Balance 106 568 Intake: IV 106 Intake, IV Titration 450 Amount Clindamycin 900 mg In 450 Dextrose 5% in Water 50 ml @ 50 mls/hr IVPB ONCE ONE Rx#:[id number] Oral 118 Other: Voiding Method Toilet Urinal # Voids 2 1 - Labs CBC & Chem 7: 01/15/22 07:25 01/15/22 07:25
[2022-01-16 12:54] VITALS: BP 120/65; PULSE 78; RESP 17
--- NOTE | 2022-01-16 19:24 | P.DS ---
Providers Date of admission: 01/14/22 14:32 Expected date of discharge: 01/16/22 Attending physician: Abdiel Novoa Consults: 01/14/22 14:32 Consult Physician Urgent Consulting Provider: Tushar Camargo Consult Reason/Comments: Bradycardia Do you want consulting provider notified?: Yes Primary care physician: [facility] Course: Chief Complaint: Syncope This is a pleasant 76-year-old patient who follows with Dr. Larose. Chronic stable medical conditions include coronary artery disease with bypass about 15 years ago, hypertension, hyperlipidemia. Follows with boomboat operator Dr. Camargo. Patient was recently in [place]. Started having recurrent syncopal episodes. Would pass out without doing. Lasting for short period of time. Loop recorder was placed in [place]. He had further episodes decided to send day. He was called to come in to the hospital as he was found to have a sinus pauses lasting anywhere from 15-18 seconds. Patient scheduled follow-up pacemaker tomorrow. Currently reclining in bed comfortable. Patient did not have any symptoms coming on before passing out. January 15: Patient's visiting. Pending pacemaker placement later today. Currently no symptoms. Telemetry. Nothing by mouth. January 16: Doing well. No issues. Follow up with the pacemaker clinic. Discussed with the patient and . Past medical history to include: Coronary artery disease with bypass, hypertension, hyperlipidemia Social history: . Does not smoke. Sitting pressure for the Tylenol field. Drinks about 4 ounces of whiskey in the evening. Family history: Reviewed, noncontributory to presentation Physical examination: VITAL SIGNS: 97.2, 78, 17, 120/65, 97% room air GENERAL: Reclining in bed, comfortable EYES: Pupils equal. Conjunctiva normal. HEENT: External appearance of nose and ears normal, oral cavity grossly normal. NECK: JVD not raised; masses not palpable. HEART: First and second heart sounds are normal; no edema. LUNGS: Respiratory rate normal; clear to auscultation. ABDOMEN: Soft, nontender, liver spleen not palpable, no masses palpable. PSYCH: Alert and oriented x3; mood and affect normal. MUSCULOSKELETAL:No Clubbing/cyanosis;muscles-grossly intact INVESTIGATIONS, reviewed in the clinical context: January 15: White count 5.3 hemoglobin 14.4 potassium 4 creatinine 0.75 White count 5.6 hemoglobin 14.8 platelets 204 sodium 141 potassium 4 being 16 creatinine 0.89 Troponin I less than 0.012 EKG tracing personally reviewed by me-sinus rhythm. First-degree AV block. Intraventricular conduction delay. Assessment and plan: -Sinus pauses lasting from 16-18 seconds on the Loop recorder causing patient to have recurrent syncope.: Permanent pacemaker placed-atenolol resumed -CAD with a prior history of bypass about 15 years ago. Aspirin. Atenolol Hyperlipidemia Lipitor 80 mg daily at bedtime. Niacin 500 mg twice a day. Niacin thousand milligram a day -Essential hypertension Zestril 5 mg a day. Atenolol resumed Disposition: Home Plan - Discharge Summary Discharge Rx Participant: Yes New Discharge Prescriptions: New Acetaminophen Tab [Tylenol] 500 mg PO Q6HR PRN tab PRN Reason: Fever And/ Or Pain Continue Atorvastatin [Lipitor] 80 mg PO HS atenoloL [Tenormin] 12.5 mg PO DAILY Niacinamide [Niacin] 500 mg PO BID lisinopriL [Zestril] 5 mg PO DAILY Aspirin EC [Ecotrin Low Dose] 81 mg PO DAILY Niacin 1,000 mg PO DAILY Multivitamins, Thera [Multivitamin (formulary)] 1 tab PO DAILY Cholecalciferol (Vitamin D3) [Vitamin D3 (125 MCG = 5,000 IU)] 125 mcg PO DAILY No Action Turmeric Root Extract [Turmeric] 500 mg PO DAILY Discharge Medication List Atorvastatin [Lipitor] 80 mg PO HS 08/23/16 [History] Niacinamide [Niacin] 500 mg PO BID 08/23/16 [History] Turmeric Root Extract [Turmeric] 500 mg PO DAILY 08/23/16 [History] atenoloL [Tenormin] 12.5 mg PO DAILY 08/23/16 [History] lisinopriL [Zestril] 5 mg PO DAILY 08/23/16 [History] Aspirin EC [Ecotrin Low Dose] 81 mg PO DAILY 01/14/22 [History] Cholecalciferol (Vitamin D3) [Vitamin D3 (125 MCG = 5,000 IU)] 125 mcg PO DAILY 01/14/22 [History] Multivitamins, Thera [Multivitamin (formulary)] 1 tab PO DAILY 01/14/22 [History] Niacin 1,000 mg PO DAILY 01/14/22 [History] Acetaminophen Tab [Tylenol] 500 mg PO Q6HR PRN tab 01/16/22 [Rx] Follow up Appointment(s)/Referral(s): Tushar Camargo MD [STAFF PHYSICIAN] - 1 Week (boomboat operator. office to call you to schedule.) Daniel Larose MD [Primary Care Provider] - 1-2 days (primary doctor. patient request to self schedule. ) Patient Instructions/Handouts: Pacemaker (DC) Activity/Diet/Wound Care/Special Instructions: Activity Restrictions or Additional Instructions: Instructions following a heart rhythm device implant. 1. Keep dressing dry for 5 days. You may cover the area with surrounding with a clean dressing/wrap prior to shower 2. The dressing can be removed in about 5 days in the Device Clinic at [facility]. Absorbable sutures were used to close the wound. 3. Avoid raising the left arm above the shoulder level. 4 week restriction. 4. Avoid arm movements such as back scratching, rubbing the head or pulling on a cord. 4 week restriction. 5. Gentle range of motion movements of the shoulder, closest institution should be performed to avoid a frozen shoulder. (Pendulum exercises of the shoulder) 6. The opposite arm may be used freely. 7. Avoid driving for 7 days. 8. Avoid activities such as golfing, swimming, weed whacking, lifting more than 10 pounds of weight, bowling, and weight training/lifting (6 week restriction) 9. Being close to home induction cooktops and activities such as wood chopping with axe, pull ups, power lifting will always be a problem 10. Arm sling is only remind her not to raise arm above the head. You do not need to keep the arm completely immobilized. You're free to move the arm and use it in normal activities. In case of any problems, [phone] Attention: Device Clinic Device clinic follow up in 5 days Follow up with primary boomboat operator Dr. Camargo Discharge Disposition: HOME SELF-CARE
== END 2022-01-16 14:32 | disposition home or self-care (01) | DRG 244 ==
LOC: EC 12:02 → 3SCARD 14:32
PROVIDERS: ADMIT Hospitalist; ATTEND Hospitalist
PROC: 02H63JZ Insertion of Pacemaker Lead into Right Atrium, Percutaneous Approach (ICD-10-PCS; 2022-01-15)
PROC: 02HK3JZ Insertion of Pacemaker Lead into Right Ventricle, Percutaneous Approach (ICD-10-PCS; 2022-01-15)
PROC: B51N1ZZ Fluoroscopy of Left Upper Extremity Veins using Low Osmolar Contrast (ICD-10-PCS; 2022-01-15)
PROC: 4A12X4Z Monitoring of Cardiac Electrical Activity, External Approach (ICD-10-PCS; 2022-01-15)
PROC: 0JH606Z Insertion of Pacemaker, Dual Chamber into Chest Subcutaneous Tissue and Fascia, Open Approach (ICD-10-PCS; principal; 2022-01-15 07:30)
DX: I49.5 Sick sinus syndrome (principal); R55 Syncope and collapse; I25.10 Atherosclerotic heart disease of native coronary artery without angina pectoris; E78.5 Hyperlipidemia, unspecified; I45.5 Other specified heart block; I45.10 Unspecified right bundle-branch block; I10 Essential (primary) hypertension; I37.1 Nonrheumatic pulmonary valve insufficiency; Z79.82 Long term (current) use of aspirin; Z79.899 Other long term (current) drug therapy; Z95.1 Presence of aortocoronary bypass graft; Z88.0 Allergy status to penicillin; Z88.2 Allergy status to sulfonamides; Z88.1 Allergy status to other antibiotic agents; Z95.818 Presence of other cardiac implants and grafts; Z87.19 Personal history of other diseases of the digestive system
CPT/HCPCS: 33208; 36415; 71045; 71046; 80048; 80053; 83735; 84484; 85025; 85610; 85730; 93005; 96360; 96361; 99285

== ENCOUNTER → 2024-12-20 | Outpatient (CLI) | payer MEDICARE ==
--- NOTE | 2024-12-20 09:22 | XR ---
EXAMINATION TYPE: XR abdomen 1V DATE OF EXAM: 12/20/2024 9:16 AM COMPARISON: None CLINICAL INDICATION: Male, 79 years old with history of R197 diarrhea; YCH, pain TECHNIQUE: One radiographic view of the abdomen was obtained. FINDINGS: Lung bases are clear. Partially visualized median sternotomy wire in the lower chest. Retained epicar dial pacer leads. No evidence for free intraperitoneal air. No dilated small bowel. Scattered small a ir-fluid levels within both small bowel and colon. No significant stool burden. No suspicious calcifi cations clearly seen. IMPRESSION: 1. No free air. Nonobstructive bowel gas pattern. 2. Numerous scattered air-fluid levels within both small bowel and colon. Findings suggest generalize d enteritis or ileus. [facility], , 12/20/2024 9:20 AM
== END | disposition home or self-care (01) ==
LOC: RADXRYALE 09:05
PROVIDERS: ATTEND Family Medicine
DX: R19.7 Diarrhea, unspecified (principal)
CPT/HCPCS: 74018